=== PATIENT | male | born 1980 | race Caucasian/White ===

== ENCOUNTER → 2016-07-06 | Outpatient (CLI) | payer OTHER ==
--- NOTE | 2016-07-07 01:25 | ECWPNPC ---
PATIENT NAME: DILLON SANON : 1980 GENDER: MALE VISIT DATE: 07/06/2016 DISCHARGE DATE: 07/06/16 0959 VISIT LOCKED DATE TIME: PHYSICIAN: KATIE BYRD RESOURCE: KATIE BYRD REASON FOR APPOINTMENT 1. LOW BACK HISTORY OF PRESENT ILLNESS HISTORY OF PRESENT ILLNESS: PAIN THE PATIENT DESCRIBES THE PAIN... FALL RISK SCREENING: SCREENING :NO FALLS IN THE PAST YEAR TODAY'S VISIT: NOTES: RATES PAIN LEVEL TODAY 8/10. DESCRIBES PAIN ACHING, SHARP, STABBING. NOTES PAIN AT BASE OF NECK, ACROSS SHOULDERS, DOWN SPINE, AND ACROSS SACRUM. STATES COLD INCREASES PAIN. HAS NOT BEEN ABLE TO BE ACTIVE DUE TO THE WEATHER. . CURRENT MEDICATIONS TAKING HYDROCHLOROTHIAZIDE 12.5 MG TABLET 1 TABLET ORALLY ONCE A DAY TAKING ALBUTEROL SULFATE HFA 108 (90 BASE) MCG/ACT AEROSOL SOLUTION 2 PUFFS NEEDED INHALATION EVERY 4 HRS TAKING LORAZEPAM 2 MG TABLET NEEDED ORALLY THREE TIMES DAILY MDD: 3 TAKING IMITREX 100 MG TABLET 1 TABLET NEEDED ORALLY TWICE A DAY TAKING OMEPRAZOLE 20 MG CAPSULE DELAYED RELEASE 2 CAPSULES ORALLY ONCE A DAY TAKING LATUDA 60 MG TABLET 1 TABLET WITH FOOD ORALLY ONCE A DAY TAKING CLARITIN 10 MG TABLET 1 TABLET ORALLY ONCE A DAY TAKING TIZANIDINE HCL 4 MG TABLET 1 - 11/2 TAB ORALLY THREE TIMES DAILY TAKING NORCO 5-325 MG TABLET 1 TABLET NEEDED ORALLY EVERY 6 HRS PRN PAIN MDD=4 NOT-TAKING GABAPENTIN 400 MG CAPSULE 1 CAPSULE ORALLY THREE TIMES A DAY NOT-TAKING LITHIUM CARBONATE 600 MG CAPSULE 1 CAPSULE ORALLY BID NOT-TAKING SEROQUEL 50 MG TABLET ORALLY BEFORE BEDTIME NOT-TAKING FIORICET 50-300-40 MG CAPSULE 1 CAPSULE NEEDED ORALLY Q 8-12 HRS PRN PAIN MDD=2 NOT-TAKING PROZAC 40 MG CAPSULE 1 CAPSULE IN THE MORNING ORALLY ONCE A DAY NOT-TAKING HYDROXYZINE HCL 50 MG TABLET 2 TAB(S) ORALLY BEFORE BEDTIME NOT-TAKING GEODON 40 MG CAPSULE 1 TABLET ORALLY ONCE DAILY NOT-TAKING NORTRIPTYLINE HCL 25 MG CAPSULE 1 -2 CAPSULE ORALLY TAKE 1 IN AM, 2 AT BEDTIME, NOTES: 0730 NOT-TAKING DIAZEPAM 2.5 MG TABLET 1 TABLET NEEDED ORALLY ONCE A DAY NOT-TAKING NORTRIPTYLINE HCL 25 MG CAPSULE 1 CAPSULE ORALLY TWICE A DAY NOT-TAKING MINIPRESS 2 MG CAPSULE 1 CAPSULE AT BEDTIME ORALLY ONCE A DAY TOTAL 3 MG, NOTES: FOR NIGHTMARES NOT-TAKING MINIPRESS 1 MG CAPSULE 1 CAPSULE AT BEDTIME ORALLY ONCE A DAY TOTAL 3 MG, NOTES: FOR NIGHTMARES NOT-TAKING CLONAZEPAM 1 MG TABLET 1 TABLET ORALLY TWICE A DAY MEDICATION LIST REVIEWED AND RECONCILED WITH THE PATIENT PAST MEDICAL HISTORY HIGH BLOOD PRESSURE HEAD INJURY/TRAUMA DUE TO DOMESTIC VIOLENCE ACID INDIGESTION BACK AND NECK PAIN BIPOLAR 2 ALLERGIES PENICILLIN V POTASSIUM: HIVES: ALLERGY CYMBALTA: PSYCHOTIC BEHAVIOR: SIDE EFFECTS LATEX (FOR ALLERGY USE ONLY): HIVES: ALLERGY TRAZODONE HCL: SUICIDAL IDEATIONS: ALLERGY SOCIAL HISTORY TOBACCO USE ARE YOU A:NONSMOKER LEARNING BARRIERS / SPECIAL NEEDS ORIENTED TO PLAN OF CARE: PATIENT, PAIN MANAGEMENT PATIENT, ORIENTED TO PLAN OF CARE: PATIENT, PAIN MANAGEMENT PATIENT. NEW PATIENT PAIN DIARY TODAY'S VISITNOTES FROM 0-10, WHAT LEVEL IS YOUR PAIN TODAY?0 PAIN CLINIC PFS, CLERGY, PUBLIC HEALTH REFERRALS PFS REFERRAL NEEDED?NO CLERGY REFERRAL NEEDED?NO PUBLIC HEALTH REFERRAL NEEDED?NO WAS THE PROVIDER NOTIFIED OF ANY PERTINENT INFO?NO PFS REFERRAL NEEDED?NO CLERGY REFERRAL NEEDED?NO PUBLIC HEALTH REFERRAL NEEDED?NO WAS THE PROVIDER NOTIFIED OF ANY PERTINENT INFO?NO REVIEW OF SYSTEMS CONSTITUTIONAL: ANY CHANGE IN YOUR MEDICAL CONDITION? NO . CHILLS NO . FEVER NO . INFECTION: DO YOU HAVE NEW INFECTIONS? NO . DO YOU HAVE HISTORY OF MRSA? NO . MUSCULOSKELETAL: ANY NEW PATTERNS OF PAIN OR NUMBNESS? NO . GASTROENTEROLOGY: ANY NEW CHANGE IN BOWEL CONTROL? NO . GENITOURINARY: ANY NEW CHANGE IN BLADDER CONTROL? NO . IS THERE A CHANCE YOU COULD BE ? NO . HEMATOLOGY/LYMPH: DO YOU TAKE ANY BLOOD THINNERS? (FOR EXAMPLE- COUMADIN, PLAVIX, AGGRENOX, PLATEL, PRADAXA, OR XARELTO) NO . WHEN WAS YOUR LAST DOSE? DATE: TIME: . NEUROLOGY: HAVE YOU FALLEN IN THE PAST 6 MONTHS? NO . ANY NEW EXTREMITY NUMBNESS OR WEAKNESS? NO . CARDIOLOGY: DO YOU HAVE A PACEMAKER OR DEFIBRILLATOR? NO . RESPIRATORY: HAVE YOU BEEN SICK IN THE PAST WEEK? YES - RECENT COUGH WITH PRODUCTION CLEAR MUCOUS, AND UPPER RESP CONGESTION . FEVER NO . FLU LIKE SYMPTOMS? NO . COUGH NO . INTEGUMENTARY: DO YOU HAVE ANY RASHES OR OPEN SORES? NO . ALLERGIC/IMMUNO: ARE YOU ALLERGIC TO SHELLFISH OR IV DYE? NO . ANY NEW ALLERGIES? NO . PSYCHIATRIC: DO YOU HAVE THOUGHTS OF HURTING YOURSELF OR SOMEONE ELSE? NO . ARE YOU ABUSED, NEGLECTED, OR IN AN UNSAFE ENVIRONMENT? NO . ENDOCRINOLOGY: ARE YOU DIABETIC? NO . OTHER: DO YOU NEED ANY PRESCRIPTIONS? YES HYDROCODONE . IF YES, PLEASE LIST: ____ . ANY NEW PROBLEMS WITH YOUR MEDICATIONS? NO . WHEN DID YOU LAST EAT? ____ . WHEN DID YOU LAST DRINK? ____ . WHAT DID YOU LAST DRINK? ____ . NAME OF PERSON DRIVING YOU HOME? ____ . DO YOU HAVE ANY OTHER QUESTIONS OR CONCERNS NO . REVIEWED BY: PROVIDER: KATIE MADRIGAL . VITAL SIGNS WT 275 LBS, HT 64 3/4, BMI 46.11 INDEX, BP 130/74 MM HG, HR 96 /MIN, RR 16 /MIN, TEMP 97.1 F, OXYGEN SAT % 95%, NA INITIALS SC 09:30. EXAMINATION GENERAL EXAMINATION: PSYCHALERT , ORIENTED X 3 , APPROPRIATE MOOD AND AFFECT , APPEARS FATIGUED. LUNGS:BILATERAL WHEEZES, NO RHONCHI. HEART:HEART RATE REGULAR, RAPID. MUSCULOSKELETAL:MUSCLE STRENGTH TESTING 5/5 BILATERAL UPPER AND LOWER EXTREMITIES. , TRIGGER POINTS:, ELICITED WITH PALPATION OVER CERVICAL SPINOUS PROCESSES AND ACROSS THE TRAPEZIUS MUSCLES BILATERALLY. RESTRICTION OF ROM IS NOTED. , ELICITED WITH PALPATION OVER LUMBAR PARAVERTEBRAL MUSCLES AND INTO THE SECRUM. RESTRICTION OF ROM IN THIS AREA. POSTURE STOOPED. GAIT NONANTALGIC. ASSESSMENTS MYALGIA - M79.1 (PRIMARY) CERVICAL SPONDYLOSIS WITH MYELOPATHY AND RADICULOPATHY - M47.12 CHRONIC MIGRAINE WITHOUT AURA WITHOUT STATUS MIGRAINOSUS, NOT INTRACTABLE - G43.709 TREATMENT MYALGIA REFILL NORCO TABLET, 5-325 MG, 1 TABLET NEEDED, ORALLY, EVERY 6 HRS PRN PAIN MDD=4, 30 DAY(S), 120, REFILLS 0 NOTES: MUST BRING OPIATE MEDS TO ALL APPOINTMENTS. FOLLOW UP WITH PRIMARY ABOUT WHEEZING. BRING HYDROCODONE TO THE OFFICE FOR COUNT BUT END OF DAY ON 07/08/16. CONTINUE CURRENT MEDS.UPDATE NARCOTIC AGREEMENT. CLINICAL NOTES: ISTOP REGISTRY REVIEWED AND DEMNOSTRATES COMPLLIANCE. DOES NOTBRINGS IN MEDICATIONS TODAY. INSTRUCTED TO BRING IN MEDS IN NEXT 2 DAYS FOR COUNT BEFORE MEDS ARE REFILLED. NARCOTIC AGREEMENT UPDATED TODAY. FOLLOW UP 26-28 DAYS ELECTRONICALLY SIGNED BY MALINI MCNAMARA ON 07/06/2016 AT 12:31 PM EST DISCLAIMER : THIS IS A VISIT SUMMARY EXTRACTED FROM THE [employer] CHART. IT IS NOT A COPY OF THE [employer] PROGRESS NOTE. [facility]
== END | disposition home or self-care (01) ==
LOC: M PAIN 09:40
PROVIDERS: ATTEND Nurse Practitioner Family
DX: Z09 Encounter for follow-up examination after completed treatment for conditions other than malignant neoplasm (principal); M79.1 Myalgia; M47.12 Other spondylosis with myelopathy, cervical region; G43.709 Chronic migraine without aura, not intractable, without status migrainosus; M54.9 Dorsalgia, unspecified; I10 Essential (primary) hypertension; K21.9 Gastro-esophageal reflux disease without esophagitis; F31.9 Bipolar disorder, unspecified; Z88.0 Allergy status to penicillin; Z91.040 Latex allergy status; Z88.8 Allergy status to other drugs, medicaments and biological substances; Z79.891 Long term (current) use of opiate analgesic; Z79.899 Other long term (current) drug therapy; Z87.820 Personal history of traumatic brain injury; Z91.410 Personal history of adult physical and sexual abuse